=== PATIENT | female | born 1965 | race Caucasian/White ===

== ENCOUNTER 2024-12-05 14:44 | Emergency (ER) | payer OTHER, SELFPAY ==
[2024-12-05 14:47] VITALS: BP 187/103
[2024-12-05 15:30] LABS: Hematocrit 45.9 % (37.0-47.0); Hemoglobin 15.1 g/dL (12.0-16.0); Mean Corp Hgb Conc. 32.9 g/dL (33.0-37.0); Mean Corpuscular Volume 85.2 fL (81.0-99.0); Nucleated Red Blood Cells % 0 %; Platelet Count 288 10^3/uL (130-400); Red Cell Dist. Width 12.4 % (11.5-14.5); Urine Character Clear (Clear)
[2024-12-05 15:41] LABS: ALT (SGPT) 45 U/L (0-35); AST (SGOT) 30 U/L (14-36); Albumin 4.6 g/dl (3.5-5.0); Alkaline Phosphatase 94 U/L (38-126); Blood Urea Nitrogen 8 mg/dl (7-17); Calcium 9.6 mg/dl (8.4-10.2); Carbon Dioxide 29 mmol/L (22-30); Chloride 100 mmol/L (98-107); Glucose 183 mg/dl (70-99); Lipase 128 U/L (23-300); Potassium 4.3 mmol/L (3.5-5.1); Sodium 136 mmol/L (135-145); Total Protein 7.6 g/dl (6.3-8.2); eGFR > 60.00
[2024-12-05 16:19] LABS: Urine Red Blood Cell 0-2 /HPF (0-2); Urine Squamous Cell >30 /LPF (Few)
--- NOTE | 2024-12-05 18:19 | ED.GENMED ---
History of Present Illness
General
Chief Complaint: Abdominal Pain
Source: patient
Time Seen by Provider: 12/05/24 18:06
History of Present Illness
History of Present Illness:
59-year-old female presents to the emergency room complaining of abdominal pain. Patient states that the abdominal pain is in the left upper abdomen. Patient states that she has been experiencing bloating type sensation, intermittent diarrhea for
over a year. She was evaluated by her primary care doctor and then by gastroenterology for the symptoms. She had a endoscopy performed at an outside institution a couple weeks ago. She was told there were couple small polyps but nothing else
acute. She decided she needed evaluation in the emergency room today because the left upper abdominal discomfort seemed more intense. She is also having some low back pain. No fever, chills, vomiting. No urinary symptoms. Patient states she has
had 19 pound unintentional weight loss over the past few months. Patient also notes that she has anal fissures which have been causing her significant pain and burning. She was prescribed an ointment of nitroglycerin and lidocaine which has not
helped. She feels like it may be making the burning worse.
Past History
Past History
ED Past Medical History: GERD
ED Past Surgical History: Other (Skin cancer removal)
Social History
Living: with family
Phy Exam
Physical Exam
Physical Exam:
General: Awake, Alert, Oriented X3. No acute distress. High BMI.
Vitals: unremarkable
Head: Atraumatic
Eyes: Pupils equal, EOMI
Throat: Airway intact, no exudates
Neck: Trachea midline
Lungs: Clear and equal b/l
Heart: Regular rate, no murmurs
Abd: Soft, mild left upper quadrant tenderness to palpation, No pulsatile mass
Neuro: Nonfocal
Skin: Warm, dry, no rash
Extremities: pulses equal b/l, no edema
Course
Orders/Labs/Results
Orders:
Orders
12/05/24 14:57
Complete Blood Count/With Diff Urgent
Comprehensive Metabolic Panel Urgent
Lipase Urgent
Urinalysis Reflex To Culture Urgent
Date Specimen was Collected: 12/05/24
Time Specimen was Collected: 14:51
Urine Microscopic Reflex Cult Urgent
Urine Culture Urgent
MIRIAM Source: U
Specimen Description:
Date Specimen was Collected: 12/05/24
Time Specimen was Collected: 14:51
12/05/24 18:18
0.9% Sodium Chloride 500 ml [Nss] 500 ml IV BOLUS
12/05/24 19:04
CT Abd/pelvis W Iv Cont Urgent
Comment:
Reason For Exam: left sided abd pain
12/05/24 19:29
HYDROmorphone [Dilaudid] 0.5 mg IV NOW STA
Abnormal Lab Results
12/05/24
14:57
MCHC 32.9 L g/dL
(33.0-37.0)
Creatinine 0.4 L mg/dL
(0.6-1.0)
Glucose 183 H mg/dl
(70-99)
ALT 45 H U/L
(0-35)
Ur Occult Blood Reflex 1+ A
(Negative)
Leukocyte Esterase Rfl 1+ A
(Negative)
Urine Bacteria (Reflex) Few A
(Negative)
Urine Albumin (Reflex) 1+ A
(Neg - Trace)
12/05/24 14:57
12/05/24 14:57
Vital Signs
Initial and Last Documented VS:
Initial Vital Signs
Temp Pulse Resp BP Pulse Ox
98.3 F 83 16 187/103 98
12/05/24 14:47 12/05/24 14:47 12/05/24 14:47 12/05/24 14:47 12/05/24 14:47
Last Documented Vital Signs
Temp Pulse Resp BP Pulse Ox
98.3 F 74 15 165/77 95
12/05/24 14:47 12/05/24 22:00 12/05/24 22:00 12/05/24 22:00 12/05/24 22:07
MDM/Problems Addressed
Differential Diagnosis Includes:
Viral gastroenteritis, diverticulitis, colitis, UTI
MDM/Problems Addressed:
Workup here shows unremarkable labs. CT does not show any acute inflammatory process. Urine is not consistent with UTI. All in all there is no evidence for an unstable process. Unclear where the patient's abdominal pain is from but does not
appear that she requires any emergent treatment or initiation of medication. 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
*Pulse Oximetry
SaO2: 98
Oxygen Mode of Delivery: Room air
Patient hypoxic: no
*Critical Care Note
Total Time (30-74mins, 75-104mins- exclusive of procedures): Not Applicable
ED Attending Note
-
Portions of this chart may have been created with voice recognition software.� Occasional wrong word or��sound alike� substitutions may have occurred due to the inherent limitations of voice recognition software.
Discharge Plan
Departure
Patient Disposition: Home (Routine Discharge)
Date of Disposition: 12/05/24
Time of Disposition: 22:13
Patient with high blood pressure during this ER visit?: Yes
Condition: Good
Discharge Problem:
Abdominal pain
Instructions: Abdominal Pain
Prescriptions:
No Action
Prilosec
20 mg PO DAILY
medroxyprogesterone 10 MG tablet
10 mg PO DAILY Qty: 9 0RF
Referrals:
Pastora Romano DO [Family Provider, Family Practice]
Activity Restrictions/Additional Instructions:
Testing here shows no specific abnormality on imaging of your abdomen and pelvis. Your blood work is reassuring. Your urinalysis does not show evidence for a urinary tract infection.
Interventions
Interventions:
*Risk Screen - Suicide Last Done: 12/05/24 19:05
*General Assessment Last Done: 12/05/24 19:05
*Neglect/Abuse Screening Last Done: 12/05/24 19:05
*ED- Fall Risk Assessment Last Done: 12/05/24 19:05
*ED COVID-19 Vaccine History Last Done: 12/05/24 19:05
*Nursing Disposition Last Done: 12/05/24 22:35
[facility]-V[facility]ff[facility] Assessment Last Done: 12/05/24 19:05
Discharge Date and Time
Print Language: YI
[2024-12-05 19:07] VITALS: BP 156/83
[2024-12-05] MEDS: NSS 500 IV (19:15)
[2024-12-05] MEDS: DILAUDID 0.5 MG IV (19:36)
[2024-12-05 19:39] VITALS: BMI 44.2
[2024-12-05 20:00] VITALS: BP 151/78
[2024-12-05 21:10] VITALS: BP 149/84
[2024-12-05 22:00] VITALS: BP 165/77
== END 2024-12-05 22:48 | disposition home or self-care (01) ==
LOC: EMR 14:44
PROVIDERS: Emergency Medicine; EMERGENCY PHYSICIAN Emergency Medicine; FAMILY PHYSICIAN Family Medicine
DX: R10.12 Left upper quadrant pain (principal); M54.50 Low back pain, unspecified; Z87.19 Personal history of other diseases of the digestive system
CPT/HCPCS: 96374; 96361; 99284; 74177; 80053; 81003; 81015; 83690; 85025; 87086; Q9967